=== PATIENT | male | born 1985 | race Hispanic/Latino ===

== ENCOUNTER 2018-12-20 14:03 | Emergency (ER) | payer BC ==
[2018-12-20 14:10] VITALS: BP 122/81; PULSE 90; RESP 16; TEMP 97; O2SAT 100
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
--- NOTE | 2018-12-20 15:11 | RAD ---
Date of service: 12/20/2018 PROCEDURE: Right Foot Radiographs. HISTORY: r/o fx COMPARISON: None. FINDINGS: BONES: No acute fracture noted. A triangular well corticated ossification projects over the dorsal talonavicular joint there is dorsal bordering navicular osseous hypertrophy as well corticated ossification and this dorsal proximal navicular aspect are mottled sclerotic and cystic in appearance on the frontal view. Mixed pathologies here are possible. Conceivably an old osseous avulsion here posttraumatic arthropathic changes asymmetrically affecting the navicular bone is 1 consideration. Unusually prominent ossifications center fused with arthropathic changes are another. An element of concomitant avascular necrosis cannot be excluded here. The findings could no chronicity. Soft tissues here are not particularly prominent. JOINTS: As above SOFT TISSUES: Normal. OTHER FINDINGS: Os trigonum noted IMPRESSION: Dorsal well corticated ossification-talonavicular level This well corticated ossification itself has a mixed bone mineralization-cystic and sclerotic features associated with it. This mix mineralization may be contributing to the frontal appearance of the proximal mid 1/3 navicular bone. At minimum arthropathic changes here are inferred. Mixed pathology is suspect: An unfused accessory ossifications center, an old osseous avulsion with or without concomitant avascular necrosis here associated with a prior stress injury are considerations. Consider MRI of the right midfoot for further evaluation.
--- NOTE | 2018-12-20 15:13 | RAD ---
Date of service: 12/20/2018 PROCEDURE: Right Ankle Radiographs. HISTORY: R/O FX COMPARISON: None available. FINDINGS: BONES: No acute fracture noted. A triangular well corticated ossification projects over the dorsal talonavicular joint there is dorsal bordering navicular osseous hypertrophy as well corticated ossification and this dorsal proximal navicular aspect are mottled sclerotic and cystic in appearance on the frontal view. Mixed pathologies here are possible. Conceivably an old osseous avulsion here posttraumatic arthropathic changes asymmetrically affecting the navicular bone is 1 consideration. Unusually prominent ossifications center fused with arthropathic changes are another. An element of concomitant avascular necrosis cannot be excluded here. The findings could no chronicity. Soft tissues here are not particularly prominent. JOINTS: Arthrosis as above osteoarthritis. Ankle mortise maintained. Talar dome intact SOFT TISSUES: Normal. OTHER FINDINGS: None. IMPRESSION: No acute fracture noted. Old fracture osseous avulsion with or without stress injury and arthrosis are additional considerations. Mixed pathology here suspect. Lumen of avascular necrosis specially with prior stress injury and/or old osseous avulsion injury here are considerations. Consider MRI of the midfoot for further evaluation. Incidentally noted is an os trigonum Talar dome intact.
== END 2018-12-20 15:58 | disposition home or self-care (01) ==
LOC: H.ER 14:03
DX: S90.01XA Contusion of right ankle, initial encounter (principal); V43.3 Unspecified car occupant injured in collision with car, pick-up truck or van in nontraffic accident; Y92.410 Unspecified street and highway as the place of occurrence of the external cause